=== PATIENT | female | born 1985 | race Caucasian/White ===

== ENCOUNTER 2024-06-20 18:19 | Emergency (ER) | payer BC, SELFPAY ==
--- OUTSIDE RECORDS SUMMARY | 2024-06-20 18:21 | XMS_ITS | Referral Summary ---
Author Organization [facility] [address] [place] [address] [address] [place] [address] Care Team Providers Care Lcpc Name Role Phone Mario Bullard MD Primary Care Provider [phone] Allergies No known active allergies Medications calcipotriene (DOVONOX) 0.005 % solution APPLY TO SCALP BID 10 9 Active clobetasol (TEMOVATE) 0.05 % external solution APPLY TO THICKENED AREAS ON SCALP QD UP TO 4 TIMES A WEEK 5 9 Active [id number]-co F60-usuq no.225 [id number] gz-zhk-ora-mg tablet Take by mouth daily Active sertraline (ZOLOFT) 100 mg tabletIndicatio ns:Generalized anxiety disorder,Modera te episode of recurrent major depressive disorder (HCC) Take 1.5 tablets (150 mg total) by mouth daily 135 tablet 3 1 Active Active Problems Problem Noted Date Diagnosed Date Encounter for screening for lipoid disorders 07/2019 Assessment & Plan (08/27/2019 2:25 PM CDT): Lipid panel ordered; will call w/results when received. Reviewed diet/exercise recommendations. Last lipid 2018 BMI 26.0-26.9,adult 08/27/2019 Assessment & Plan (08/27/2019 2:13 PM CDT): Discussed healthy diet and importance of regular physical activity. BMI is acceptable for this patient. Refused influenza vaccine 01/15/2019 Assessment & Plan (01/15/2019 3:56 PM ELECTRICIAN YARD): Discussed and the patient refuses immunization today. Educated regarding the need to vaccinate for personal protection and to limit the viruses in the community to protect those most vulnerable. Female infertility, unexplained 06/30/2017 Generalized anxiety disorder 04/15/2016 Overview (05/29/2016): Generalized anxiety disorder Assessment & Plan (08/27/2019 2:25 PM CDT): Reports good control of anxiety w/current regimen. No changes to be made at this time. Drug mg refill sent. Reviewed med Ses & scheduling. Reviewed red flags. F/u in 6-12 mos; sooner if necessary. Assessment & Plan (01/15/2019 3:58 PM ELECTRICIAN YARD): Anxiety well controlled. Continues on sertraline 150mg daily. 7 mos . EDC=03/11/19. Has date 03/05/19. Assessment & Plan (07/18/2018 4:52 PM CDT): Psychological condition is improving with treatment. Continue current treatment regimen. Psychological condition will be reassessed at the next regular appointment. Discussed that sertraline is category c drug. Discussed risks/benefits of medications. It does cross placenta. Discussed minimal 1st trimester effects. Will discuss w/OB at appt next week. Assessment & Plan (06/05/2018 11:22 AM CDT): Psychological condition is improving with treatment. Continue current treatment regimen. Psychological condition will be reassessed in 3 months. Reports good control of anxiety w/current regimen. Reviewed med Ses & scheduling. Reviewed red flags. Depression 03/28/2015 Overview (05/28/2016): Depression Assessment & Plan (08/27/2019 2:25 PM CDT): Reports good control of depression w/current regimen. No changes to be made at this time. Reviewed med Ses & scheduling. Reviewed red flags. F/u in 6-12 months; sooner if needed. Assessment & Plan (01/15/2019 3:58 PM ELECTRICIAN YARD): Continues on sertraline 150mg daily. Doing well. Has concerns w/PPD. Had when she had son 9 yrs ago. OB aware & is monitoring also. Aware to call if she notices worsening in depression. Doing well at present time. Denies thoughts of SI/HI on direct questioning. Reviewed red flags. Assessment & Plan (07/18/2018 4:52 PM CDT): Psychological condition is improving with treatment. Continue current treatment regimen. Psychological condition will be reassessed at the next regular appointment. Discussed that sertraline is category c drug. Discussed risks/benefits of medications. It does cross placenta. Discussed minimal 1st trimester effects. Will discuss w/OB at appt next week. Assessment & Plan (06/05/2018 11:22 AM CDT): Psychological condition is not improving with sertraline 100mg. . Medication changes per orders. Psychological condition will be reassessed 6 weeks if no improvement, in 3 months if improvement noted. Denies thoughts of SI/HI on direct questioning. Denies sertraline SE. Reviewed red flags. Resolved Problems Problem Noted Date Diagnosed Date Resolved Date BMI 31.0-31.9,adult 01/15/2019 08/27/19 20 Assessment & Plan (01/15/2019 3:56 PM ELECTRICIAN YARD): 7 mos . Discussed healthy diet and importance of regular physical activity. Immunizations Immunization Administration Dates Next Due Influenza, Live, Intranasal, Quadrivalent 01/01/2014,01/01/2014 Influenza, Quadrivalent, Spl it, Preservative Free, Intramuscular 12/30/2017 Influenza, Split 11/27/2012,11/27/2012 Influenza, Unspecified 11/12/2020(Deferr ed: Patient Refused),11/12/2020(Deferred: Patient Refused),10/23/2019(Deferred: Patient Refused),08/27/2019(Deferred: Patient Refused),02/21/2019(Deferred: Patient Refused),01/15/2019(Deferred: Patient Refused),01/15/2019(Deferred: Patient Refused),02/21/2018(Deferred: Patient Refused),11/18/2017(Deferred: Patient Refused),11/18/2017(Deferred: Patient Refused),02/21/2017(Deferred: Patient Refused),02/21/2017(Deferred: Patient Refused),02/21/2017(Deferred: Patient Refused),02/21/2017(Deferred: Patient Refused),02/23/2016(Deferred: Patient Refused) Tdap 03/07/2019 Social History Tobacco Use Types Packs/Day Years Used Date Smoking Tobacco: Former Cigarettes Q uit: 12/07/2017 Smokeless Tobacco: Former Comments:1 pack every 2 days Alcohol Use Standard Drinks/Week Comments Not Currently 0 (1 standard drink = 0.6 oz pur e alcohol) PHQ-2 Answer Date Recorded PHQ-2 Total Score (If total score is 3 or more points, staff should administer the PHQ-9) 2 11/12/2020 Comments Unknown Sex and Gender Information Value Date Recorded Sex Assigned at Not on file Legal Sex Female 5:18 PM ELECTRICIAN YARD Gender Identity Not on file Sexual Orientation Not on file Last Filed Vital Signs Vital Sign Reading Time Taken Comments Blood Pressure 118/86 11/12/2020 10:57 AM CDT Pulse 78 11/12/2020 10:57 AM CDT Temperature 36.8 C (98.3 F) 11/12/2020 10:57 AM CDT Respiratory Rate 16 11/12/2020 10:57 AM CDT Oxygen Saturation 99% 11/12/2020 10:57 AM CDT Inhaled Oxygen Concentration - - Weight 83 kg (183 lb) 11/12/2020 10:57 AM CDT Height 170.2 cm (5' 7.01 ) 11/12/2020 10:57 AM C DT Body Mass Index 28.66 11/12/2020 10:57 AM CDT Plan of Treatment Not on file Insurance [facility] CHOICE PLUS Care Teams Lcpc Relationship Specialty Start Date [place] [address] PCP - General 05/21/16
--- OUTSIDE RECORDS SUMMARY | 2024-06-20 18:21 | XMS_ITS | Clinical Summary ---
Author Organization [facility] [address] [place] [address] Address [address] [place] [address] Care Team Providers Care Power Plant Installer Name Role Phone Mario Bullard MD Primary Care Provider [phone] Allergies No known active allergies Medications calcipotriene (DOVONOX) 0.005 % solution APPLY TO SCALP BID 10 9 Active clobetasol (TEMOVATE) 0.05 % external solution APPLY TO THICKENED AREAS ON SCALP QD UP TO 4 TIMES A WEEK 5 9 Active A9-LC-N47-co I75-ipue no.225 [id number] qj-ggq-jku-mg tablet Take by mouth daily Active sertraline [...] 01/15/2019 Assessment & Plan (01/15/2019 3:56 PM HEEL COMPRESSOR): Discussed and the patient refuses immunization today. [...] necessary. Assessment & Plan (01/15/2019 3:58 PM HEEL COMPRESSOR): Anxiety well controlled. Continues on sertraline 150mg [...] needed. Assessment & Plan (01/15/2019 3:58 PM HEEL COMPRESSOR): Continues on sertraline 150mg daily. Doing well. [...] 20 Assessment & Plan (01/15/2019 3:56 PM HEEL COMPRESSOR): 7 mos . Discussed healthy diet and [...] Refused),02/21/2017(Deferred: Patient Refused),02/23/2016(Deferred: Patient Refused) Tdap 03/07/2019 Surgical History Surgery Date Site/Laterality Comments OTHER SURGICAL HISTORY 2009 : OTHER SURGICAL HISTORY 1999 lymph node removal SECTION 2011 section Medical History Medical History Date Comments Hx Other Medical 2009 ; Comm ents: Baby in miliary presentation. FTP; Outcome: 39 week 9 lb(s) Unknown sex Anxiety disorder Anxiety Depression Depression Gestational diabetes mellitu s in 12/2018 diagnosed at 32 weeks pregna nt Family History Medical History Relation Name Comments Bipolar disorder Brother Bipolar dis order; Other Father Alive and well; Bipolar disorder Mother Bipolar dis order; Hypertension Other Family history of Hypertension; Relation Name Status Comments Brother Father Alive Mother Alive Other Social History Tobacco Use Types Packs/Day Years [...] on file Legal Sex Female 5:18 PM HEEL COMPRESSOR Gender Identity Not on file Sexual Orientation Not on file Obstetrics History Last Filed Vital Signs Vital Sign Reading [...] Plan of Treatment Not on file Insurance [facility] CHOICE PLUS [facility] HMO/PPO Address: [address] [address] [place] [address] Care Teams Power Plant Installer Relationship Specialty Start Date End Date Mario Bullard MD [address] [place] [address] [facility] - General 05/21/16
[2024-06-20 18:23] VITALS: BP 150/86; PULSE 80; RESP 16; TEMP 36.5; O2SAT 99
--- NOTE | 2024-06-20 18:27 | ED.FEMALEGU ---
HPI - Female Genitourinary General Chief complaint: Urogenital-Female Stated complaint: Urinary Problem Time Seen by Provider: 06/20/24 18:28 Source: patient Mode of arrival: ambulatory Limitations: no limitations History of Present Illness HPI Narrative: Andrea is a 38-year-old female patient presenting to the clinic today with complaints of possible UTI x3 days. She reports burning with urination and foul urine odor. States that she has taken azo to and that is not helping her symptoms. Denies any fevers, chills, abdominal pain, or back pain. No nausea or vomiting. Denies any vaginal discharge. No concern for STIs. Related Data Home Medications ?Medication ?Instructions ?Recorded ?Confirmed ?Last Taken ?Type iron,carbonyl 65 mg-vitamin C 125 1 tablet PO DAILY 02/08/19 03/05/19 03/04/19 12:00 History mg tablet,delayed release (Vitron-C) Allergies Allergy/AdvReac Type Severity Reaction Status Date / Time No Known Allergies Allergy Verified 06/20/24 18:40 Review of Systems Review of Systems: Pertinent positives per HPI. Patient denies any fever, chills, rash, headache, visual changes, dizziness, cough, runny nose, sore throat, shortness of breath, chest pain, palpitations, nausea, vomiting, diarrhea, constipation, abdominal pain. PMFSH Past Medical History Medical History Anxiety Anemia Gestational diabetes mellitus Surgical History Surgical History History of Family History Family History Father Diabetes mellitus Grandparent Lupus Social History Social History Smoking status: Never smoker Substance use: never Spiritual care concerns: No Comments At the time of my signature, I reviewed and agree with the nursing past medical, surgical, social, and family history. There is no relevant family history pertinent to the patient complaint. Exam Narrative: General: Well-developed, well nourished, in no apparent distress. Head: Normocephalic, atraumatic. Cardio: Regular rate and rhythm, s1 and s2 normal, no murmur appreciated. Resp: Clear to auscultation bilaterally, no rhonchi, rales, wheezing or rubs. Abdomen: Soft, pliable, bowel sounds present in all quadrants, non-tender to palpation, no organomegly, no CVAT tenderness. Course Course Emergency Course: Portions of this record may have been created with voice recognition software. Level of Care: Express Care Visit Vital Signs Vital signs: Vital Signs Temperature 36.5 C 06/20/24 18:23 Pulse Rate 80 06/20/24 18:23 Respiratory Rate 16 06/20/24 18:23 Blood Pressure 150/86 H 06/20/24 18:23 Pulse Oximetry 99 06/20/24 18:23 Oxygen Delivery Room Air 06/20/24 18:23 Temperature 36.5 C 06/20/24 18:23 Pulse Rate 80 06/20/24 18:23 Respiratory Rate 16 06/20/24 18:23 Blood Pressure 150/86 H 06/20/24 18:23 Pulse Oximetry 99 06/20/24 18:23 Oxygen Delivery Room Air 06/20/24 18:23 Vital signs reviewed MDM - Female Genitourinary MDM Narrative Medical decision making narrative: At the time of visit patient is resting comfortably on the exam table. Patient appears to be nontoxic. Labs: Urinalysis dip would be skewed due to azo so we will send urine for culture. Plan: I suspect patient has UTI symptoms. Prescription for Bactrim was sent to the pharmacy. Urine culture was sent to the lab. Supportive measures were discussed with the patient and they voiced understanding discharge instructions and agrees to treatment plan. Return precautions reviewed Differential Diagnosis Differential diagnosis: Likely urinary tract infection and cystitis Discharge Plan Discharge Clinical Impression: Urinary tract infection Qualifiers: Urinary tract infection type: acute cystitis Hematuria presence: with hematuria Qualified Code(s): N30.01 - Acute cystitis with hematuria Patient Disposition: Home Condition: Stable Instructions: Antibiotic Form, Urinary Tract Infection in Women (ED) Additional Instructions: Urinalysis skewed due to taking azo. We will send urine for culture Take Bactrim as prescribed Increase fluids and stay well hydrated Wipe front to back. May use wet wipes. Avoid tub baths If sexually active- pee before and after intercourse. Wear cotton panties Avoid tight clothing up against the genitals Follow up with your PCP in 1 week if symptoms persist. Patient Language: Occitan Prescriptions: New sulfamethoxazole-trimethoprim [Bactrim DS] 800-160 mg tablet 1 tablet PO Q12H 5 Days Qty: 10 0RF No Action Vitron-C 65 mg iron- 125 mg Tablet,Delayed Release (Dr/Ec) 1 tablet PO DAILY Follow-up/Referrals: PHYSICIAN,[employer] [Primary Care Provider] - Time of Disposition: 18:41 Quality NIHSS Nursing Documentation ED NIHSS nursing documentation: reviewed/agree
== END 2024-06-20 18:43 | disposition home or self-care (01) ==
PROVIDERS: Emergency Provider Nurse Practitioner Family
DX: N30.01 Acute cystitis with hematuria (principal)
CPT/HCPCS: 87077; 87086; 87186; 99213; G0463